=== PATIENT | male | born 1955 | race Caucasian/White ===

== ENCOUNTER 2017-11-26 07:31 | Day surgery (SDC) | payer BC ==
[~2017-11-26 07:31] MED LIST: ACETAMINOPHEN 1,000 MG/100 ML BTL IV ONE; CEFAZOLIN 2 Gram 2 GM/50 ML BAG IVPB ONE
[2017-11-26] MEDS ORDERED: ONDANSETRON HCL IV 4 MG/2 ML VIAL IVP ONE (07:32)
[2017-11-26] MEDS ORDERED: MIDAZOLAM HCL 2MG/2ML VIAL IV ONE (07:32)
[2017-11-26] MEDS ORDERED: FENTANYL PF 100MCG/2ML VIAL IV ONE (07:32)
[2017-11-26] MEDS ORDERED: BUPIVACAINE 0.25% W/EPI MPF 30ML VIAL IVP ONE (07:32)
[2017-11-26] MEDS ORDERED: PROPOFOL 10 MG/ML VIAL IV ONE (07:32)
[2017-11-26] MEDS ORDERED: KETOROLAC 30 MG/ML VIAL IVP ONE (07:32)
[2017-11-26] MEDS ORDERED: SEVOFLURANE 250 ML INH ONE (07:32)
[2017-11-26] MEDS ORDERED: HYDROCODONE/APAP 5/325MG TABLET PO ONE (07:32)
[2017-11-26] MEDS ORDERED: LIDOCAINE 2% MDV (20MG/ML) 20ML VIAL IV ONE (07:32)
[2017-11-26 07:34] LABS: BASO % 0.3 % (0-6); EOS % 3.4 % (0-6); GRAN % 61.3 % (47-80); HEMATOCRIT 45.5 % (42.0-52.0); HEMOGLOBIN 16.1 gm/dl (14.0-18.0); LYMPH % 27.3 % (16-45); MEAN CELL VOLUME 89.4 fl (81-97); MEAN CORPUSCULAR HEMOGLOBIN 31.6 pg (27-33); MEAN CORPUSCULAR HGB CONC 35.4 g/dl (32-36); MEAN PLATELET VOLUME 8.9 fl (7.4-10.4); MONO % 7.7 % (0-9); PLATELET COUNT 357 K/uL (130-400); RED BLOOD COUNT 5.09 M/uL (4.40-5.70); RED CELL DISTRIBUTION WIDTH 13.3 % (11.5-14.5); WHITE BLOOD COUNT W/O DIFF 6.5 K/uL (4.2-12.2)
[2017-11-26 07:49] LABS: BLOOD UREA NITROGEN 20 mg/dL (8-23); CREATININE 0.8 mg/dL (0.7-1.2); EST GLOMERULAR FILTRATION RATE > 60 mL/min; GLUCOSE,RANDOM 115 mg/dL (74-109)
--- NOTE | 2017-11-28 10:11 | Operative Note ---
DATE OF SURGERY: 11/26/2017 Surgeon: Marek Morgan DO PREOPERATIVE DIAGNOSIS: Incarcerated umbilical hernia. POSTOPERATIVE DIAGNOSIS: Incarcerated umbilical hernia. OPERATION: Open umbilical herniorrhaphy with mesh. Indication: The patient is a 62-year-old male who presented to the clinic with pain and bulging in his periumbilical region. He clearly had an incarcerated hernia on exam. Risks, benefits, and alternatives were discussed. Risks include but are not limited to bleeding, infection, acute on chronic pain, recurrence. He understood this fully. PROCEDURE: Thereafter, consent was signed and questions answered. He was taken to the operating room and placed in a supine position. General anesthesia was administered per the department of anesthesia. The patient's abdomen was shaved of hair and prepped and draped in the usual fashion. At this time, periumbilical region was anesthetized with a total of 10 mL of 0.25% Sensorcaine with epinephrine. A 3.5 cm curvilinear infraumbilical incision was made. This was carried down to the anterior rectus fascia. The umbilical stalk was encircled and dissected free from the underlying hernia sac. Clean circumferential fascial edges were obtained. The hernia sac was then amputated and passed off the field. The hernia itself measured about 1 cm. At this time, a 6.[address] mesh was obtained. This was placed in the intraperitoneal position with excellent overlap of the hernia. The aranterior upper skirt of the mesh was sutured to the anterior rectus fascia with 2-0 Vicryl. This was done in 6 spots. The tails overlapped the mesh and were sutured in place as well. At this time, the skin was tacked back down with 3-0 Vicryl. The skin was closed with 4-0 Vicryl. He was taken to the recovery room in satisfactory condition. FINDINGS AT THE TIME OF SURGERY: Incarcerated umbilical hernia, repaired as above. CC: Avery STROUD
== END 2017-11-26 10:27 | disposition home or self-care (01) ==
LOC: SUR 07:31
PROVIDERS: ATTEND Surgery
DX: K42.1 Umbilical hernia with gangrene (principal)
CPT/HCPCS: 85025; 80048; 49587; 00840; J1885; J2405; J3010; J0690